=== PATIENT | male | born 1945 | race Caucasian/White ===

== ENCOUNTER 2018-01-28 12:44 | Outpatient (RCR) | payer MEDICARE, OTHER ==
[2016-12-28 11:02] VITALS: BP 172/72
[~2018-01-28 12:44] MED LIST: PROP60CA22 PO
[2018-01-28] MEDS ORDERED: LISI-362 PO (13:12)
== END 2018-02-14 09:20 | disposition home or self-care (01) ==
LOC: RAON 12:44
PROVIDERS: ATTEND Radiology Radiation Oncology
DX: Z85.46 Personal history of malignant neoplasm of prostate (principal); Z92.3 Personal history of irradiation; E78.00 Pure hypercholesterolemia, unspecified; F17.220 Nicotine dependence, chewing tobacco, uncomplicated
CPT/HCPCS: 36415; 84153; G0463; 99212

== ENCOUNTER 2019-02-03 13:23 | Outpatient (RCR) | payer MEDICARE, OTHER ==
[2019-01-26 12:55] VITALS: BP 150/70
[2019-01-26 13:06] LABS: PLATELET COUNT, AUTOMATED 214 K/uL (150-450)
[~2019-02-03 13:23] MED LIST changes: +LISI-362 PO
[2019-02-03 13:24] VITALS: BP 158/65
[2019-02-03] MEDS ORDERED: PROP10TA58 PO (13:29)
--- NOTE | 2019-02-03 23:51 | ONCOLOGY FOLLOW UP NOTE ---
EVENT DATE: February 03, 2019 CHIEF COMPLAINT/REASON FOR VISIT Known history of prostate carcinoma. Patient is here for oncology surveillance. ONCOLOGY HISTORY 1. [place] 6 adenocarcinoma of the prostate detected in 2 of 12 core biopsies, 11/08/2010. 2. Status post IMRT radiotherapy, completed 02/15/2011. Pretreatment PSA 4.8 ng/mL. IMRT radiotherapy dose 7700 cGy. HISTORY OF PRESENT ILLNESS Florencio was seen for an annual oncology surveillance appointment for his prostate cancer. Overall, he is doing well. 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 He denies any voiding complaints or significant changes. He denies any bone pain. His AUA symptom score was stable at 11. PSA is stable. His PSA dropped from 0.32 ng/mL in January of last year to 0.21 ng/mL on 01/26/2019. PAST MEDICAL HISTORY 1. Prostate carcinoma. 2. Hypertension. 3. Hypercholesterolemia. PAST SURGICAL HISTORY 1. Prostate biopsy, 10/31/2018. 2. Right rotator cuff surgery, February 2011. 3. Hernia repair, 1955. SOCIAL HISTORY Father had stomach carcinoma in his 60s. Mother had breast cancer in her 60s. Rare alcohol use. Patient has used chewing tobacco in the past. REVIEW OF SYSTEMS On comprehensive review of systems, denies any excessive fatigue. No bone pain. No respiratory or cardiac symptoms. No GI complaints or changes. He had the Cologuard testing last year and was told everything was normal. PHYSICAL EXAMINATION GENERAL: A pleasant 73-year-old male. Karnofsky Performance Status 100. VITAL SIGNS: BP 158/65, pulse 55, O2 saturation 96% on room air. Weight stable at 152. LUNGS: Clear bilaterally. HEART: Heart sounds regular. LYMPHATIC: No lymphadenopathy. ABDOMEN: Soft. No organomegaly. RECTAL: Exam is deferred due to normal PSA. IMPRESSION Overall, patient is doing well, with no evidence of prostate cancer recurrence. I reviewed his laboratory studies, which were all normal. He will see Dr. Leigh annually for medical followup, and I will see him again in a year with an updated PSA. [facility]
== END 2019-02-27 13:27 | disposition home or self-care (01) ==
LOC: RAON 13:23
PROVIDERS: ATTEND Radiology Radiation Oncology
DX: Z85.46 Personal history of malignant neoplasm of prostate (principal); Z92.3 Personal history of irradiation
CPT/HCPCS: 36415; 84153; 85025; G0463; 82040; 82247; 82310; 82374; 82435; 82565; 82947; 84075; 84132; 84155; 84295; 84450; 84460; 84520; 99212